=== PATIENT | female | born 1955 | race Caucasian/White ===

== ENCOUNTER 2016-11-20 16:36 | Inpatient (IN) | payer MEDICARE, OTHER ==
--- NOTE | 2016-11-22 19:24 | NUR ---
1815 - PATIENT C/O CONSTIPATION. DULCOLAX 5 MG PO ADMINISTERED.
[2016-11-23] MEDS ORDERED: SPIRIVA18 MCG IH (13:05)
[2016-11-23] MEDS ORDERED: SYMBICORT 16010.2 GM IH (13:05)
[2016-11-23] MEDS ORDERED: TRAZODONE HCL100 MG PO (13:05)
[2016-11-23] MEDS ORDERED: ORPHENADRINE C100 MG PO (13:05)
[2016-11-23] MEDS ORDERED: OMEPRAZOLE20 MG PO (13:06)
[2016-11-23] MEDS ORDERED: GUAIFENESIN400 MG PO (13:06)
[2016-11-23] MEDS ORDERED: B-121000 MCG PO (13:06)
[2016-11-23] MEDS ORDERED: EFFEXOR XR75 MG PO (13:06)
[2016-11-23] MEDS ORDERED: LYRICA50 MG PO (13:07)
[2016-11-23] MEDS ORDERED: NICOTINE PATCH1 EAC2 TOP (13:07)
[2016-11-23] MEDS ORDERED: NORCO 5-325 TA1 EACH PO (13:07)
[2016-11-23] MEDS ORDERED: ACETAMINOPHEN325 MG PO (13:08)
[2016-11-23] MEDS ORDERED: HIPREX1000 MG PO (13:08)
[2016-11-23] MEDS ORDERED: MEDROL4 M1 PO (13:09)
== END 2016-11-23 15:22 | disposition home or self-care (01) | DRG 690 ==
LOC: MED 16:36
PROVIDERS: ADMIT Internal Medicine
PROC: 02HV33Z Insertion of Infusion Device into Superior Vena Cava, Percutaneous Approach (ICD-10-PCS; principal; 2016-11-20)
PROC: B548ZZA Ultrasonography of Superior Vena Cava, Guidance (ICD-10-PCS; 2016-11-20)
DX: N39.0 Urinary tract infection, site not specified (principal); J44.1 Chronic obstructive pulmonary disease with (acute) exacerbation; B96.20 Unspecified Escherichia coli [E. coli] as the cause of diseases classified elsewhere; Z16.24 Resistance to multiple antibiotics; G89.29 Other chronic pain; G47.33 Obstructive sleep apnea (adult) (pediatric); F41.9 Anxiety disorder, unspecified; E66.9 Obesity, unspecified; M54.5 Low back pain; E78.1 Pure hyperglyceridemia; I10 Essential (primary) hypertension; F31.9 Bipolar disorder, unspecified; G25.81 Restless legs syndrome; G43.909 Migraine, unspecified, not intractable, without status migrainosus; K21.9 Gastro-esophageal reflux disease without esophagitis; M19.90 Unspecified osteoarthritis, unspecified site; Z85.528 Personal history of other malignant neoplasm of kidney; Z90.49 Acquired absence of other specified parts of digestive tract; Z79.899 Other long term (current) drug therapy; Z88.1 Allergy status to other antibiotic agents; Z88.0 Allergy status to penicillin; Z88.2 Allergy status to sulfonamides; Z88.8 Allergy status to other drugs, medicaments and biological substances; F17.210 Nicotine dependence, cigarettes, uncomplicated; Z80.1 Family history of malignant neoplasm of trachea, bronchus and lung; Z80.0 Family history of malignant neoplasm of digestive organs; Z82.49 Family history of ischemic heart disease and other diseases of the circulatory system; M51.16 Intervertebral disc disorders with radiculopathy, lumbar region; Z68.39 Body mass index [BMI] 39.0-39.9, adult
CPT/HCPCS: 97161-GP; C1751; J1335